=== PATIENT | male | born 1975 | race Caucasian/White ===

== ENCOUNTER → 2021-11-07 15:43 | Outpatient (BNVA) | payer BC, SELFPAY | PROVIDERS: Family Provider Internal Medicine; Visit Provider Registered Nurse Neonatal Intensive Care | DX: Z20.822 Contact with and (suspected) exposure to COVID-19 (principal) | CPT/HCPCS: 87635 ==

== ENCOUNTER 2022-02-11 21:19 | Emergency (ER) | payer BC, SELFPAY ==
[2022-02-11 21:24] VITALS: BP 148/96; PULSE 114; RESP 14; TEMP 36.6; O2SAT 99; BMI 32.5
--- NOTE | 2022-02-11 21:42 | W.ED.SKABFB ---
HPI - Skin/Abscess/Foreign Bdy General: Chief complaint: Skin/Abscess/Foreign Body Stated complaint: Skin infection Time Seen by Provider: 02/11/22 21:41 History of Present Illness: 46-year-old male patient comes in today for complaints of itching and picking. Patient believes that the has been exposed to a parasite. Patient does have a history of methamphetamine use but denies any recent use. Patient also has a history of opiate use disorder. Patient is alert and oriented. Patient denies suicidal homicidal intent. Patient reports no fever and no diabetes. Review of Systems General: Reports: 10 or more systems reviewed and unremarkable except in HPI and below Card: Reports: chest pain Resp: Reports: dyspnea Skin/Breast: Reports: new lesions PFS ED PFSH: Family History Other CAD (coronary artery disease) Cancer Diabetes Hypertension Lung disease Denies family history of Dementia Chronic kidney disease (CKD) Stroke Social History Smoking and tobacco status: current every day smoker Alcohol intake: former Lives independently: Yes Physical Exam Const: COMMON NORMALS: alert HENMT: COMMON NORMALS: normocephalic HEAD & SCALP: normocephalic Neck/C-Spine: COMMON NORMALS: full ROM Resp: COMMON NORMALS: normal respiratory effort and clear to auscultation bilaterally AUSCULTATION: clear to auscultation bilaterally Cardio: COMMON NORMALS: regular rate and regular rhythm RATE: regular rate RHYTHM: regular rhythm Extremity: COMMON NORMALS: full ROM Neuro: SENSORIUM/ORIENTATION: Yes alert Skin: LESIONS: lesion noted (Multiple lesions to areas of picking in different stages of healing) OTHER: Patient has erythema to bilateral lower extremities with warmth. Course Vital Signs: Vital signs: Vital Signs Temperature 97.9 F 02/11/22 21:24 Pulse Rate 114 H 02/11/22 21:24 Respiratory Rate 14 02/11/22 21:24 Blood Pressure 148/96 02/11/22 21:24 Pulse Oximetry 99 02/11/22 21:24 MDM - Skin/Abscess/Foreign Bdy Medicial Decision Making Patient comes in today for concerns of parasite infestation. Patient has multiple lesions of different stages of healing's to the upper and lower extremities face neck. These are mainly in areas where patient can reach. Patient does have some erythema to bilateral lower extremities with worse on the left along with heat. Vital signs are normal except for some elevation in pulse. Differential diagnosis substance use disorder, delusions of parasitosis, scabies, cellulitis. Due to the warmth and redness to the bilateral lower extremities I will treat with Bactrim for cellulitis. Patient will be covered with hydroxyzine to help with itching. We will treat with permethrin and Stromectol for scabies. Strongly suspect that this is more of a delusion secondary to methamphetamine use. Patient does not found to be a threat to himself and was released to home with prescriptions. Discharge Plan Discharge Patient Disposition: Home Clinical Impression: Parasitosis, Impetigo Condition: Stable Prescriptions: New Stromectol 3 mg tablet 15 mg PO DAILY 1 Days Qty: 5 0RF permethrin 5 % cream 1 applic topical Q14D Qty: 60 0RF Rx Instructions: apply second treatment 14 days after first treatment if live lice remain Bactrim DS 800-160 mg tablet 1 tab PO BID 10 Days Qty: 20 0RF hydroxyzine HCl 25 mg tablet 25 mg PO Q6H PRN (Reason: itching) Qty: 20 0RF No Action buprenorphine-naloxone 8-2 mg tablet, sublingual 1 tab sublingual DAILY 0RF omeprazole 40 mg capsule,delayed release(DR/EC) 40 mg PO BID 0RF ondansetron HCl [Zofran] 4 mg tablet 4 mg PO Q6H PRN (Reason: nausea and vomiting) Qty: 20 0RF Discharge Orders: Discharge ED (Routine); Ordered 02/11/22 Ordered By: Efrem Del Rio Discharge Diet: Usual diet Discharge Activity: Increase activity as tolerated Patient Instructions: Opioid Safety Activity Restrictions/Additional Instructions: Avoid picking at lesions. Take antibiotics and antiparasitic agents as directed. Drink plenty of water. Use hydroxyzine as needed for itching. Follow-up with primary care for further instruction. Return to ER for new concerns. Coding Level of Care Code ED Lead Maintenance Technician for Rachel Estrada
[2022-02-11] MEDS: sulfamethoxazole-trimeth DS 160-800 mg Tablet 1 TAB PO (22:40)
[2022-02-11] MEDS: hyDROXYzine 25 mg Capsule PO (22:40)
[2022-02-11 22:45] VITALS: BP 158/107; PULSE 104; RESP 18; O2SAT 96
== END 2022-02-11 22:45 | disposition home or self-care (01) ==
PROVIDERS: Emergency Provider Nurse Practitioner Family
DX: B88.9 Infestation, unspecified (principal); L01.00 Impetigo, unspecified
CPT/HCPCS: 99283

== ENCOUNTER 2022-03-15 13:16 | Emergency (ER) | payer BC, SELFPAY ==
[2022-03-15 13:29] VITALS: BP 146/93; PULSE 118; RESP 16; TEMP 36.9; O2SAT 98
--- NOTE | 2022-03-15 14:06 | W.ED.DENTAL ---
HPI - Dental/Oral General: Chief complaint: Dental/Oral Stated complaint: oral infection Time Seen by Provider: 03/15/22 13:44 Source: patient Mode of arrival: ambulatory Limitations: no limitations History of Present Illness: Patient is a 46-year-old male who presents to ED today with a complaint of left upper dental pain over the past few days. He states he has a cracked tooth to this area. Patient states he has an appoint with Dr. Diop (dentist) in approximately a week for evaluation. He has noticed some mild facial swelling. MD Complaint: tooth pain Teeth map: 1. Onset (ago): day(s) Duration: constant Severity: moderate Relieving factors: nothing Exacerbating factors: nothing Context: history of dental caries and poor dental care Associated symptoms: Reports no associated symptoms; Denies fever(s) or odynophagia Treatment prior to arrival: oral analgesic Review of Systems Const: Denies: fever(s), chills, body aches, fatigue or malaise Eyes: Denies: change in vision or blurry vision ENMT: Reports: dental pain; Denies: throat pain, uvular edema, enlarged tonsils, odynophagia, hoarseness, swelling of lips/tongue, nasal discharge, nasal congestion or sinus pain Card: Denies: chest pain Resp: Denies: dyspnea GI: Denies: abdominal pain Musc: Denies: neck pain Skin/Breast: Denies: rash Neuro: Denies: headache(s) PFS ED PFSH: Family History Other CAD (coronary artery disease) Cancer Diabetes Hypertension Lung disease Denies family history of Dementia Chronic kidney disease (CKD) Stroke Social History Smoking and tobacco status: current every day smoker Alcohol intake: former Lives independently: Yes Physical Exam Const: COMMON NORMALS: no acute distress, patient oriented x3, no limitations and alert GENERAL APPEARANCE: cooperative ORIENTATION/CONSCIOUSNESS: Yes awake, Yes oriented to person, Yes oriented to place and Yes oriented to time HENMT: COMMON NORMALS: normocephalic and atraumatic HEAD & SCALP: normal to inspection, normocephalic and atraumatic FACE & SINUS: normal facial exam MOUTH: lip normal, tongue normal and other (lesion to L buccal mucosa that needs follow up) TEETH & GINGIVA: Yes caries and Yes poor dentition TEETH & GINGIVA IMAGES: 1. fractured tooth; no obvious abscess; widespread dental disease THROAT: posterior oropharynx normal, tonsils normal and uvula midline; no uvular edema Neck/C-Spine: COMMON NORMALS: full ROM and no lymphadenopathy GENERAL: Yes normal visual inspection, No anterior neck swelling and No submandibular swelling Neuro: COMMON NORMALS: patient oriented x3 SENSORIUM/ORIENTATION: Yes alert, Yes oriented to person, Yes oriented to place and Yes oriented to time Course Vital Signs: Vital signs: Vital Signs Temperature 98.5 F 03/15/22 13:29 Pulse Rate 118 H 03/15/22 13:29 Respiratory Rate 16 03/15/22 13:29 Blood Pressure 146/93 03/15/22 13:29 Pulse Oximetry 98 03/15/22 13:29 MDM - Dental/Oral Medical Decision Making We will go ahead and place patient on antibiotics prior to his dental appointment. He is asking for pain medication specifically hydrocodone for his pain. He states he is supposed to be on Suboxone but recently moved to the area and has not been able to follow-up with Suboxone clinic. He is asking if we would dose him this medication instead of the hydrocodone. I told him we do not dispense Suboxone from the emergency department. As a policy we generally do not provide narcotic pain medications for dental discomfort. I told him I would write for a small amount of Tylenol 3's which he seems unhappy with. Other conservative therapies at home discussed. I would like him to follow-up with his dentist to his regular scheduled appointment. Discharge Plan Discharge Patient Disposition: Home Clinical Impression: Toothache, Dental caries Fracture of tooth Qualifiers: Encounter type: initial encounter Fracture type: closed Qualified Code(s): S02.5XXA - Fracture of tooth (traumatic), initial encounter for closed fracture Condition: Stable Prescriptions: New penicillin V potassium 500 mg tablet 500 mg PO Q8H 7 Days Qty: 21 0RF acetaminophen-codeine 300-30 mg tablet 1 tab PO Q6H PRN (Reason: pain) Qty: 10 0RF No Action buprenorphine-naloxone 8-2 mg tablet, sublingual 1 tab sublingual DAILY 0RF omeprazole 40 mg capsule,delayed release(DR/EC) 40 mg PO BID 0RF ondansetron HCl [Zofran] 4 mg tablet 4 mg PO Q6H PRN (Reason: nausea and vomiting) Qty: 20 0RF permethrin 5 % cream 1 applic topical Q14D Qty: 60 0RF Rx Instructions: apply second treatment 14 days after first treatment if live lice remain hydroxyzine HCl 25 mg tablet 25 mg PO Q6H PRN (Reason: itching) Qty: 20 0RF Discharge Orders: Discharge ED (Routine); Ordered 03/15/22 Ordered By: Latha Betancur Activity Restrictions/Additional Instructions: You need to follow-up with Dr. Diop at your currently scheduled appointment for March 23. As a policy our emergency department does not dispense narcotic pain medications for dental pain. You have been provided a small amount of Tylenol #3 that you may use sparingly for pain. I highly recommend you try to treat as much as possible with [id number] medications and conservative treatment such as Tylenol, Ibuprofen, topical Orajel, warm compresses, etc. Coding Level of Care Code ED Flight Engineer Helicopter for Rachel Estrada
== END 2022-03-15 14:24 | disposition home or self-care (01) ==
PROVIDERS: Emergency Provider Physician Assistant
DX: S02.5XXA Fracture of tooth (traumatic), initial encounter for closed fracture (principal); X58.XXXA Exposure to other specified factors, initial encounter
CPT/HCPCS: 99283